=== PATIENT | female | born 2000 | race Caucasian/White ===

== ENCOUNTER 2019-01-19 16:04 | Emergency (ER) | payer MEDICARE, OTHER ==
[~2019-01-19] VITALS: Ht 175.3 cm; Wt 68.0 kg
--- OUTSIDE RECORDS SUMMARY | ~2019-01-19 | XMS | Encounter Summary ---
Demographics + + + | Address | [address] | | | [place] [address] | + + + | Home Phone | | + + + | Preferred Language | Unknown | + + + | Marital Status | Single | + + + | Baptism Affiliation | CHR | + + + | Race | White | + + + | Ethnic Group | Not or | + + + Author + + + | Organization | Unknown | + + + | Address | Unknown | + + + | Phone | Unavailable | + + + Support + + +---------+ + | Name | Relationship | Address | Phone | + + +---------+ + | Mera Guerrero | ECON | Unknown | | + + +---------+ + Care Team Providers + +------+ + | Care Cylinder Filler Name | Role | Phone | + +------+ + | Cheryl Edge MD | PCP | | + +------+ + Encounter Details +--------+ + + + + | Date | Type | Department | Care Team | Description | +--------+ + + + + | 10/02/ | Office | | Note, Outpatient | Progress Note | | 2006 | Visit-Trans | | Clinic | | | | cribed | | | | +--------+ + + + + Social History + +-------+ +--------+------+ | Tobacco Use | Types | Packs/Day | Years | Date | | | | | Used | | + +-------+ +--------+------+ | Never Assessed | | | | | + +-------+ +--------+------+ + + + | Sex Assigned at | Date Recorded | | | | + + + | Not on file | | + + + + + + + | Job Start Date | Occupation | Industry | + + + + | Not on file | Not on file | Not on file | + + + + + + + + | Travel History | Travel Start | Travel End | + + + + + + | No recent travel history available. | + + documented as of this encounter Progress Notes Interface, Editor Book In - 10/07/2005 2:06 AM PDT [id number] DENIS Walker [id number] Clinic Date: 10/02/2005 Clinic: [facility] History: Linda recently had ablation for supraventricular tachycardia in [place]. She, subsequent to the ablation, has had no further episodes of palpitations. She has been exercising and doing very well. At the present time, she is on no medications. Physical Examination: General: She is in no distress, without cyanosis, and alert. Vital Signs: She weighs 30 kg, she is 130.5 cm tall, blood pressure is 113/73, heart rate is 94 per minute and regular, and arterial saturation by pulse oximeter on room air is 99%. Chest: Palpation of the precordium reveals no overactivity nor thrills. Cardiovascular: She has no heart murmurs on listening to the heart. Heart sounds are normal. She has a normally splitting second sound. Summary: During the course of the examination, I noted that she had a somewhat prominent thyroid which was soft to palpation. I asked Dr. Whelan to review this, and she suggested that she be seen by Dr. Edge subsequently. With regard to her supraventricular tachycardia, I am anticipating that this has been cured though I did relate to the mother that occasionally there are occult pathways that do not show up but that this would be a rare occurrence. At this time, I see no reason for our followup excepting on referral from Dr. Edge. Terrance Victoria M.D. Professor of Pediatrics Division of Pediatric Cardiology [facility] / [id number] / [id number] / [id number] / [id number] cc: Cheryl Edge M.D. [address] [place] [address] Electronically signed by Terrance Victoria 10-06-2005 07:49:33 AM documented i n this encounter Plan of Treatment Not on filedocumented as of this encounter Visit Diagnoses Not on filedocumented in this encounter"
--- OUTSIDE RECORDS SUMMARY | ~2019-01-19 | XMS | Encounter Summary ---
Demographics + + + | Address | [address] | | | [place] [address] | + + + | Home Phone | | + + + | Preferred Language | Unknown | + + + | Marital Status | Single | + + + | Denominational Affiliation | CHR | + + + [...] Team Providers + +------+ + | Care Stainless Steel Finisher Name | Role | Phone | + +------+ + PCP | Unavailable | + +------+ + Encounter Details +--------+ + + + + | Date | Type | Department | Care Team | Description | +--------+ + + + + | 06/14/ | Office | | Note, Outpatient | Progress Note | | 2005 | Visit-Trans | | Clinic | | [...] as of this encounter Progress Notes Interface, Real Estate Administrative Assistant In - 09/15/2004 12:00 PM PDT [id number] DENIS Walker Clinic Date: 06/14/2004 Clinic: [facility] Jessa relates that she had had an episode of tachycardia about a month ago. This was the first episode since November 2003. Previously had episodes and all studies did not show anything other than sinus tachycardia. Mother relates that this episode lasted about 40 minutes. Unfortunately when it occurred, their car would not start, and they did not get to the Emergency Room until about 40 minutes or so later and the episode had spontaneously aborted. During this time, the child became little pale but still not in any acute distress. Physical Examination: Examination today is normal. Vital Signs: She weighed 57-1/2 pounds. She is 15-1/4 inches tall. Respiratory was 22 per minute, regular. Blood pressure was 96/60. Heart rate 96 per minute and regular. Arterial saturation by pulse oximeter 98%. Cardiac: Normal without murmur, normal heart sounds. Again, I am reluctant to make a diagnosis or treat this young child without a firm diagnosis. I did instruct the mother again to take her to the Emergency Room if this should occur. I will be talking with Dr. Gonzalez to see whether or not with an episode that lasted 40 minutes, whether it might be prudent to do an electrophysiologic study to see if this could be induced and then treat her subsequently. Otherwise, I will plan to see her again in 6 months. Hopefully, we will come to some way of making a diagnosis. Terrance Victoria M.D. Professor of Pediatrics Division of Pediatric Cardiology [facility] / [id number] / [id number] / [id number] / cc: Cheryl Edge M.D. [address] [place] [address] Electronically signed by Terrance Victoria 06-26-2004 02:01:29 PM documented i n this encounter Plan of Treatment Not on filedocumented as of this encounter Visit Diagnoses Not on filedocumented in this encounter"
--- OUTSIDE RECORDS SUMMARY | ~2019-01-19 | XMS | Encounter Summary ---
Demographics + + + | Address | [address] | | | [place] [address] | + + + | Home Phone | | + + + | Preferred Language | Unknown | + + + | Marital Status | Single | + + + | Voodoo Affiliation | CHR | + + + [...] Team Providers + +------+ + | Care Hide And Skin Colerer Name | Role | Phone | + +------+ + | Cheryl Edge MD | PCP | | + +------+ + Encounter Details +--------+ + + + + | Date | Type | Department | Care Team | Description | +--------+ + + + + | 07/09/ | Letter-Roy | | Letter, Clinic | Letters | | 2006 | scribed | | | | +--------+ + + [...] as of this encounter Progress Notes Interface, Quality Assurance Project Manager In - 07/11/2005 2:08 AM PDT [id number] 07/09/2005 07/09/2005 [id number] DENIS Walker [id number] [facility] [address] [place] [address] or Department of Pediatrics, Division of Pediatric Cardiology Phone #: , Fax #: July 09, 2005 Terrance Victoria M.D. Department of Pediatrics, Division of Cardiology, [facility] RE: MAGDIEL GUERRERO MR #: [id number] Dear Terrance: This is a short note to let you know that your patient, Magdiel, underwent electrophysiologic studies and catheter ablation today. 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 The slow pathway of the AV node was targeted for ablation and successfully ablated without any problems. Provided she has a normal recovery this afternoon, she will be able to go home later today. She has been asked to take aspirin 81 mg once a day for the next 2 weeks and come back see you in [place] in about 2 months' time. I am delighted with the successful procedure. If you have any questions or concerns, please do get back with me. Thank you. Yours Sincerely, Fahad Gonzalez M.D. Director, Pediatric Electrophysiology Parimutuel Clerk of Pediatrics Division of Pediatric Cardiology [facility] SB / [id number] / [id number] / [id number] / cc: Cheryl Edge M.D. [address] [place] [address] documented i n this encounter Plan of Treatment Not on filedocumented as of this encounter Visit Diagnoses Not on filedocumented in this encounter"
--- OUTSIDE RECORDS SUMMARY | ~2019-01-19 | XMS | Encounter Summary ---
Demographics + + + | Address | [address] | | | [place] [address] | + + + | Home Phone | | + + + | Preferred Language | Unknown | + + + | Marital Status | Single | + + + | Yazdanism Affiliation | 1013 | + + + | Race | Unknown | + + + | Ethnic Group | Unknown | + + + Author + + + | Author | [facility] | | | and [place] | + + + | Organization | [facility] | | | and [place] | + + + | Address | Unknown | + + + | Phone | Unavailable | + + + Support + + +---------+ + | Name | Relationship | Address | Phone | + + +---------+ + | Navjot Guerrero | ECON | Unknown | | + + +---------+ + Care Team Providers + +------+ + | Care Warhead Maintenance Specialist Name | Role | Phone | + +------+ + | No, Physician | PCP | Unavailable | + +------+ + Reason for Visit + + + | Reason | Comments | + + + | Pharyngitis | Exam 3/ Sore throat x3 days | + + + Encounter Details +--------+---------+ + + + | Date | Type | Department | Care Team | Description | +--------+---------+ + + + | 12/19/ | Office | [facility] | Jm Valerio | Pharyngitis, | | 2017 | Visit | [facility] [address] | Gerry West MD | unspecified etiology | | | | [place] | [address] | (Primary Dx) | | | | [phone] | [facility] [place] | | | | | [phone] | [address] | | | | | | | | +--------+---------+ + + + Social History + +-------+ +--------+------+ | Tobacco Use | Types | Packs/Day | Years | Date | | | | | Used | | + +-------+ +--------+------+ | Never Smoker | | | | | + +-------+ +--------+------+ + +---+---+---+ | Smokeless Tobacco: | | | | | Never Used | | | | + +---+---+---+ + + + | Sex Assigned at [...] + + documented as of this encounter Last Filed Vital Signs + + + + + | Vital Sign | Reading | Time Taken | Comments | + + + + + | Blood Pressure | 108/69 | 12/19/2016 4:13 PM | | | | | PDT | | + + + + + | Pulse | 87 | 12/19/2016 4:13 PM | | | | | PDT | | + + + + + | Temperature | 37.6 C (99.7 F) | 12/19/2016 4:13 PM | | | | | PDT | | + + + + + | Respiratory Rate | 18 | 12/19/2016 4:13 PM | | | | | PDT | | + + + + + | Oxygen Saturation | 99% | 12/19/2016 4:13 PM | | | | | PDT | | + + + + + | Inhaled Oxygen | - | - | | | Concentration | | | | + + + + + | Weight | 73.8 kg (162 lb 11.2 | 12/19/2016 4:13 PM | | | | oz) | PDT | | + + + + + | Height | 177.8 cm (5' 10") | 12/19/2016 4:13 PM | | | | | PDT | | + + + + + | Body Mass Index | 23.34 | 12/19/2016 4:13 PM | | | | | PDT | | + + + + + documented in this encounter Patient Instructions Patient Instructions Jm Valerio Jr., MD - 12/19/2016 3:45 PM PDTCall for cult ure result in 3 days Follow-up with your doctor or the clinic if not improving in 5 days. Take medication as directed Increase fluid intake Recheck sooner, in the clinic, with your doctor or in the ER, if your symptoms worsen or ne w problems develop 5: 03 PM PDT documented in this encounter Progress Notes Jm Valerio Jr., MD - 12/19/2016 3:45 PM PDTLinda Denise Guerrero Chief Complaint: Sore throat and fever for 3 days HPI: Patient presents with a three-day history of sore throat and low-grade fever. She's had no runny nose or cough. She's had no GI symptoms. No known exposure to strep throat. She has not had mono. She is . Past medical history, past surgical history, medication reviewed. Physical Exam: No acute distress, alert and oriented, non-toxic in appearance BP 108/69 | Pulse 87 | Temp 37.6 C (99.7 F) (Temporal) | Resp 18 | Ht 1.778 m (5' 1 0") | Wt 73.8 kg (162 lb 11.2 oz) | SpO2 99% | ? No | BMI 23.34 kg/m Nose: clear Ears: TM's not inflamed Throat: erythema, no exudate Neck: Supple, no stridor, no adenopathy Chest: No rales, no rhonchi, no wheezes, good breath sounds bilaterally, no respiratory di stress Heart: Regular rhythm, no murmur, no gallop, no rub Strep screen: negative Diagnosis: pharyngitis Plan: Zithromax, culture-call in 3 days for the results Follow-up with your doctor or the clinic if not improving in 5 days. Take medication as directed Increase fluid intake Recheck sooner, in the clinic, with your doctor or in the ER, if your symptoms worsen or ne w problems develop This note dictated with Margaret and was not proofread. antwon duckworth in this encounter Plan of Treatment Not on filedocumented as of this encounter Procedures + +--------+ + + + | Procedure Name | Priori | Date/Time | Associated Diagnosis | Comments | | | ty | | | | + +--------+ + + + | CULTURE, | Routin | 12/19/2016 | Pharyngitis, | Results for this | | RESPIRATORY, UPPER | e | 5:07 PM | unspecified etiology | procedure are in the | | | | PDT | | results section. | + +--------+ + + + | POCT STREPTOCOCCUS A | Routin | 12/19/2016 | Pharyngitis, | Results for this | | NAAT | e | 4:45 PM | unspecified etiology | procedure are in the | | | | PDT | | results section. | + +--------+ + + + documented in this encounter Results Culture, Respiratory, Upper (12/19/2016 5:07 PM PDT) + + + + + + | Component | Value | Ref Range | Performed | Pathologist | | | | | At | Signature | + + + + + + | Culture | No Group A Streptococcus | | [facility] | | | | isolated | | [facility] | | | | | | [facility] | | | | | | [facility] - | | | | | | LABORATORY | | + + + + + + | Culture | 4+ Usual Respiratory | | [facility] | | | | [facility] | | [facility] | | | | | | MEDICAL | | | | | | CENTER - | | | | | | LABORATORY | | + + + + + + | Culture | 4+ Neisseria | | [facility] | | | | meningitidisComment: | | [facility] | | | | Beta-lactamase | | MEDICAL | | | | negativeConsistent with | | CENTER - | | | | usual respiratory hannah. | | LABORATORY | | + + + + + + + + | Specimen | + + | Respiratory - | | Specimen from throat | | (specimen) | + + + + + + + | Performing | Address | City/State/Zipcode | Phone Number | | Organization | | | | + + + + + | [facility] | [address] | [place] | [phone] | | [facility] | | [address] | | | - LABORATORY | | | | + + + + + POCT Streptococcus A NAAT (12/19/2016 4:45 PM PDT) + + + + + + | Component | Value | Ref Range | Performed | Pathologist | | | | | At | Signature | + + + + + + | Group A | Negative | Negative | | | | Strep, DNA | | | | | | POC | | | | | + + + + + + | Internal QC | Acceptable | Acceptable | | | + + + + + + | CULTURE | | | | | | SENT TO LAB | | | | | + + + + + + + + | Specimen | + + | | + + documented in this encounter Visit Diagnoses + + | Diagnosis | + + | Pharyngitis, unspecified etiology - Primary | + + documented in this encounter
--- OUTSIDE RECORDS SUMMARY | ~2019-01-19 | XMS | Encounter Summary ---
Demographics + + + | Address | [address] | | | [place] [address] | + + + | Home Phone | | + + + | Preferred Language | Unknown | + + + | Marital Status | Single | + + + | Scientology Affiliation | CHR | + + + [...] Team Providers + +------+ + | Care Research Home Economist Name | Role | Phone | + +------+ + PCP | Unavailable | + +------+ + Encounter Details +--------+ + + + + | Date | Type | Department | Care Team | Description | +--------+ + + + + | 08/23/ | Office | | Note, Outpatient | [...] as of this encounter Progress Notes Interface, Commercial Loan Manager In - 09/15/2004 10:27 AM PDT [id number] DENIS Walker Clinic Date: 08/23/2004 Clinic: Linda sent in a monitored ECG which did show supraventricular tachycardia. With this, we plan to start treating her with beta elle, atenolol 25 mg daily. We will see her in [place] in September 2004 and then discuss further possibilities of ablation if they wish to go ahead with that or to continue medication at this time. Terrance Victoria M.D. Professor of Pediatrics Division of Pediatric Cardiology [facility] / [id number] / [id number] / [id number] / [id number] cc: Janneth Edge M.D. [address] [place] [address] Electronically signed by Terrance Victoria 08-26-2004 12:25:44 PM documented i n this encounter Plan of Treatment Not on filedocumented as of this encounter Visit Diagnoses Not on filedocumented in this encounter"
--- OUTSIDE RECORDS SUMMARY | ~2019-01-19 | XMS | Encounter Summary ---
Demographics + + + | Address | [address] | | | [place] [address] | + + + | Home Phone | | + + + | Preferred Language | Unknown | + + + | Marital Status | Single | + + + | Gnosticism Affiliation | CHR | + + + | Race | White | + + + | Ethnic Group | Not or | + + + Author + + + | Author | [facility] | + + + | Organization | [facility] | + + + | Address | Unknown | + + + | Phone | Unavailable | + + + Support + + +---------+ + | Name | Relationship | Address | Phone | + + +---------+ + | Mera Guerrero | ECON | Unknown | | + + +---------+ + Care Team Providers + +------+ + | Care Brick Stacker Name | Role | Phone | + +------+ + PCP | Unavailable | + +------+ + Encounter Details +--------+ + + + + | Date | Type | Department | Care Team | Description | +--------+ + + + + | 06/09/ | Results | Nick | Fahad Gonzalez, | | | 2005 | Only | Cardiology Rashawn | [address] [facility] | | | | | [facility] [address] | [address] | | | | | [place]) [facility] | [place], [place] | | | | | [place] | [address] | | | | | [address] | [phone] | | | | | [phone] | | | +--------+ + + + [...] + + documented as of this encounter Plan of Treatment + +------+--------+ + + | Name | Type | Priori | Associated Diagnoses | Date/Time | | | | ty | | | + +------+--------+ + + | TTE (TRANSTHORACIC | ECG | Routin | | 06/09/2005 9:29 AM | | ECHO)-PEDS | | e | | PDT | + +------+--------+ + + | TTE (TRANSTHORACIC | ECG | Routin | | 07/07/2005 6:06 PM | | ECHO)-ARMANDO | | e | | PDT | + +------+--------+ + + documented as of this encounter Visit Diagnoses Not on filedocumented in this encounter"
--- OUTSIDE RECORDS SUMMARY | ~2019-01-19 | XMS | Encounter Summary ---
Demographics + + + | Address | [address] | | | [place] [address] | + + + | Home Phone | | + + + | Preferred Language | Unknown | + + + | Marital Status | Single | + + + | Evangelical Affiliation | CHR | + + + | Race | White | + + + | Ethnic Group | Not or | + + + Author + + + | Author | [facility] | + + + | Organization | [facility] | + + + | Address | Unknown | + + + | Phone | Unavailable | + + + Support + + +---------+ + | Name | Relationship | Address | Phone | + + +---------+ + | Mera Guerrero | ECON | Unknown | | + + +---------+ + Care Team Providers + +------+ + | Care Director Software Name | Role | Phone | + +------+ + PCP | Unavailable | + +------+ + Encounter Details +--------+ + + + + | Date | Type | Department | Care Team | Description | +--------+ + + + + | 09/27/ | Abstract | Pediatric | Terrance Victoria, | | | 2004 | | Cardiology at | | | | | | [place] [address] | | | | | | [address] | | | | | | Pediatric | | | | | | [facility] | | | | | | [place], [place] | | | | | | [address] | | | | | | [phone] | | | +--------+ + + + [...] as of this encounter Plan of Treatment Not on filedocumented as of this encounter Visit Diagnoses Not on filedocumented in this encounter"
--- OUTSIDE RECORDS SUMMARY | ~2019-01-19 | XMS | Encounter Summary ---
Demographics + + + | Address | [address] | | | [place] [address] | + + + | Home Phone | | + + + | Preferred Language | Unknown | + + + | Marital Status | Single | + + + | Jehovah'S Witness Affiliation | 1013 | + + + | Race | Unknown | + + + | Ethnic Group | Unknown | + + + Author + + + | Author | [facility] | | | and [place] | + + + | Organization | [facility] | | | and [...] Team Providers + +------+ + | Care Broadcast Maintenance Technician Name | Role | Phone | + +------+ + | No, Physician | PCP | Unavailable | + +------+ + Reason for Visit + + + | Reason | Comments | + + + | Medication Follow-up | | + + + Encounter Details +--------+ + + + + | Date | Type | Department | Care Team | Description | +--------+ + + + + | 12/23/ | Telephone | [facility] | Gallito Pichardo | Medication Follow-up | | 2017 | | [facility] [address] | MD H[place] [address] | | | | | [address] [address] | [address] [place] | | | | | [address] | [address] | | | | | [phone] | | | +--------+ + + + [...]
--- OUTSIDE RECORDS SUMMARY | ~2019-01-19 | XMS | Encounter Summary ---
Demographics + + + | Address | [address] | | | [place] [address] | + + + | Home Phone | | + + + | Preferred Language | Unknown | + + + | Marital Status | Single | + + + | Hindu Affiliation | CHR | + + + [...] Team Providers + +------+ + | Care Crossing Tender Name | Role | Phone | + +------+ + PCP | Unavailable | + +------+ + Encounter Details +--------+ + + + + | Date | Type | Department | Care Team | Description | +--------+ + + + + | 09/27/ | Office | | Note, Outpatient | [...] as of this encounter Progress Notes Interface, Supervisor Wrapping Room In - 10/10/2004 5:05 AM PDT [id number] DENIS Walker Clinic Date: 09/27/2004 Clinic: [facility] History of Present Illness: Linda came in today with her parents to discuss options relative to management of her documented supraventricular tachycardia. The family did not start her on a beta-elle as they were concerned about possible effects on her behavior. I spent 15 to 20 minutes discussing the situation with the family giving them the options of observing her with the knowledge of management of any episode of tachycardia that persisted for long enough time for them to treat it, that is with either a wet cloth over her face, breath-holding, i.e., a Valsalva maneuver or standing on her head which effectively is a Valsalva maneuver. Other options would be to start her on a beta-elle or use of radiofrequency ablation. After consideration of this, the family thought that they would soon follow her along since the episodes that she has are infrequent and that they generally are of short duration. To me, this is acceptable. I told them that if they want to go ahead with either the other management regimens then we would be happy to do that; otherwise, I would see her in a year and re-discuss the options at that time. Terrance Victoria M.D. Professor of Pediatrics Division of Pediatric Cardiology [facility] / [id number] / [id number] / [id number] / [id number] cc: Cheryl Edge M.D. [address] [facility] [place] [address] Electronically signed by Terrance Victoria 10-09-2004 07:39:09 AM documented i n this encounter Plan of Treatment Not on filedocumented as of this encounter Visit Diagnoses Not on filedocumented in this encounter"
--- OUTSIDE RECORDS SUMMARY | ~2019-01-19 | XMS | Encounter Summary ---
Demographics + + + | Address | [address] | | | [place] [address] | + + + | Home Phone | | + + + | Preferred Language | Unknown | + + + | Marital Status | Single | + + + | Christianity Affiliation | 1013 | + + + | Race | Unknown | + + + | Ethnic Group | Unknown | + + + Author + + + | Author | [facility] | | | and [place] | + + + | Organization | [facility] | | | [...] Team Providers + +------+ + | Care Cisco Certified Internetwork Expert Name | Role | Phone | + +------+ + | No, Physician | PCP | Unavailable | + +------+ + Reason for Visit +---------+ + | Reason | Comments | +---------+ + | Results | | +---------+ + Encounter Details +--------+--------+ + + + | Date | Type | Department | Care Team | Description | +--------+--------+ + + + | 12/22/ | Refill | [facility] | Jm Valerio | Results | | 2017 | | CARE [address] | Gerry West MD | | | | | [place] | [address] | | | | | [address] | [place] | | | | | [phone] | [address] | | | | | | | | +--------+--------+ + + + Social History + +-------+ [...]
--- OUTSIDE RECORDS SUMMARY | ~2019-01-19 | XMS | Encounter Summary ---
Demographics + + + | Address | [address] | | | [place] [address] | + + + | Home Phone | | + + + | Preferred Language | Unknown | + + + | Marital Status | Single | + + + | Denominational Affiliation | 1013 | + + + | Race | Unknown | + + + | Ethnic Group | Unknown | + + + Author + + + | Author | [facility] | | | and [place] | + + + | Organization | [facility] | | | and [...] Team Providers + +------+ + | Care Fishing Boat Mate Name | Role | Phone | + [address] | | | | | [address] | [place] | | | | | [phone] | [address] | | | | | | | [...]
--- OUTSIDE RECORDS SUMMARY | ~2019-01-19 | XMS | Encounter Summary ---
Demographics + + + | Address | [address] | | | [place] [address] | + + + | Home Phone | | + + + | Preferred Language | Unknown | + + + | Marital Status | Single | + + + | Quaker Affiliation | CHR | + + + | Race | White | + + + | Ethnic Group | Not or | + + + Author + + + | Author | [facility] | + + + | Organization | [facility] | + + + | Address | Unknown | + + + | Phone | Unavailable | + + + Support + + +---------+ + | Name | Relationship | Address | Phone | + + +---------+ + | Mera Guerrero | ECON | Unknown | | + + +---------+ + Care Team Providers + +------+ + | Care Hired Hand Name | Role | Phone | + +------+ + | Cheryl Edge MD | PCP | | + +------+ + Encounter Details +--------+ + + + + | Date | Type | Department | Care Team | Description | +--------+ + + + + | 07/01/ | Ancillary | Registration [id number] | Fahad Gonzalez, | | | 2005 | Registratio | [address] | [address] | | | | [address] | [address] Mailcode: [address] | [address] | | | | | [place], [place] | [place], [place] | | | | | [address] | [address] | | | | | [phone] | [phone] | | | | | | | | +--------+ + + [...]
--- OUTSIDE RECORDS SUMMARY | ~2019-01-19 | XMS | Encounter Summary ---
Demographics + + + | Address | [address] | | | [place] [address] | + + + | Home Phone | | + + + | Preferred Language | Unknown | + + + | Marital Status | Single | + + + | Mormon Affiliation | CHR | + + + [...] Team Providers + +------+ + | Care Intervention Analyst Name | Role | Phone | + +------+ + | Cheryl Edge MD | PCP | | + +------+ + Encounter Details +--------+ + + + + | Date | Type | Department | Care Team | Description | +--------+ + + + + | 07/09/ | Procedure - | | Report, Cardiac | Cardiac Cath | | 2006 | | | Cath | | | | Transcribed | | | | +--------+ + + [...] as of this encounter Progress Notes Interface, Family Services Assistant In - 07/30/2005 2:08 AM PDT [id number] 07/09/2005 [id number] DENIS Walker [id number] Patient Name: Linda GUERRERO Patient Data: Height 137 cm Weight 30.7 kg BSA 1.09 m2 Date of Procedure: July 09, 2005 : 2000 Physician: Fahad Gonzalez M.D. Shake Out Worker, Pediatrics Division of Cardiology Tomasz Maher M.D. Fellow, Clinical Cardiac Electrophysiology Referring Physician: Fahad Gonzalez M.D. PROCEDURE(S) PERFORMED: 1. Electrophysiology study with induction. 2. Coronary sinus pacing and recording. 3. Pacing study with drug infusion. 4. Catheter mapping and ablation of the slow pathway of the atrioventricular node. INDICATIONS: A 5-year-old female with recurrent supraventricular tachycardia. FLUOROSCOPY TIME: 12.42 minutes FLUOROSCOPY DAP: 4.02 cGy cm2 PROCEDURE NARRATIVE: Following oral and written informed consent with the patient's parents, the patient was brought to the Cardiac Catheterization Laboratory in the postabsorptive, nonsedated state. She was prepped and draped in the usual sterile fashion. An automated blood pressure cuff and pulse oximeter were placed for continuous monitoring. Lidocaine 1% was used for local anesthesia. A combination of midazolam, fentanyl, Phenergan and pentobarbital was used to achieve moderate sedation. Following this, a 7 Fr 10-cm Sedalia sheath was placed in the right femoral vein. Two 10-cm Sedalia sheaths, a 6 Fr and a 5 Fr, were placed in the left femoral vein. Following this, a 6 Fr Bea curve catheter was placed in the right ventricle. A 4 Fr deflectable decapolar catheter was placed in the coronary sinus. A 6 Fr hexapolar catheter was placed in the His position. TABLE OF VALUES: PRE-ABLATION Rhythm: SINUS Cycle Length: 680 AH Interval: 90 HV Interval: 44 Preexcitation present: NO CODES: AP Accessory pathway FP Fast pathway SP Slow pathway M Muscle AVN AV node SITE BLOCK CL PACE CL ERP RV < 300 CS 390 500 360 FP, 260 AVN Induced Rhythm: AVNRT Cycle Length: 330 POST ABLATION Rhythm: SINUS Cycle Length: 600 AH Interval: 63 HV Interval: 41 Preexcitation present: NO SITE BLOCK CL PACE CL ERP CS 500 320 AVN RV 500 270 AVN CS ISO 301 500 270 AVN No. of RF Applications: 15 (ALL < 15 SEC DURATION) ELECTROPHYSIOLOGY STUDY: The patient presented in a baseline rhythm that was sinus with a cycle length of 680 msec with normal AH and HV intervals with no evidence of preexcitation. Pacing in the right ventricle, conduction was midline and decremental with a block cycle length of less than 300 msec. Interestingly, there was a significant jump in the ventriculoatrial interval during decremental ventricular pacing. Pacing in the coronary sinus, there was evidence of atrioventricular Wenckebach with a block cycle length of 390 msec. With single atrial extrastimuli, there was an AH interval jump greater than 50 msec with the fast pathway effective refractory period defined as 360 msec and a slow pathway effective refractory period of 260 msec. Because of the dramatic shift in ventriculoatrial interval timing during right ventricular pacing, parahisian pacing was undertaken with confirmed Hisian capture and no evidence of an extranodal accessory pathway. With straight right atrial pacing and single extrastimuli, tachycardia could not be induced such that the patient was started on 1 mcg/min of isuprel to achieve an isuprel effect. With straight right atrial pacing, a short RP supraventricular tachycardia was induced at a cycle length of 330 msec with a ventriculoatrial interval of approximately 0 msec. Given evidence of a significant AH interval jump, dual atrioventricular shashi physiology and a short RP tachycardia with a short ventriculoatrial interval, it was felt the tachycardia was most likely atrioventricular shashi reentrant in mechanism such that the decision was then to proceed to slow pathway ablation. RADIOFREQUENCY ABLATION: The patient was given 1,500 units of heparin. A 7 Fr, B-curve, 4-mm tip thermistor catheter was then advanced in the inferoposterior aspect of the tricuspid annulus and the slow pathway mapped. Initial brief lesions were made in the more inferior aspect of the mitral annulus. They were less than 15 seconds in duration but did not produce consistent junctional beats during delivery. Mapping further toward the mid region along the anterior lip of the coronary sinus, at least two deliveries were made that produced consistent junctional beats that were approximately 15 seconds in duration. POST ABLATION: Retesting after these deliveries showed a change in atrioventricular shashi conduction pattern such that, pacing from the coronary sinus, there was continued atrioventricular Wenckebach; however, there was no longer any evidence of an AH interval jump with the fast pathway effective refractory period being 320 msec. Pacing in the right ventricle, conduction again was midline and decremental with no evidence of a ventriculoatrial interval jump seen prior to the study, with the effective refractory period of the atrioventricular node being 270 msec. An isuprel challenge was undertaken at 1 mcg/min. Pacing the coronary sinus, there was atrioventricular Wenckebach with a block cycle length of 300 msec. With single atrial extrastimuli, there was again absence of an AH interval jump with the block cycle length of the fast pathway at 270 msec. No supraventricular tachycardia could be reinduced. Thus, after observation of approximately 20 minutes, post testing showed atrioventricular shashi properties consistent with slow pathway ablation and absence of inducibility of supraventricular tachycardia such that the decision was to end the case at this time. DISPOSITION: All catheters were removed from the patient, as well as sheaths, and manual pressure was held to maintain hemostasis. The patient was then escorted back to the interventional recovery unit for further observation. COMPLICATIONS: None. FINAL RESULTS: 1. Atrioventricular shashi reentrant tachycardia. 2. Slow pathway ablation. ATTENDING SURGEON'S ATTESTATION: Pursuant to Federal Medicare Requirements, I certify that Fahad Gonzalez M.D. was present for the whipple elements of the procedure and participated directly in the generation of this report. Tomasz Maher M.D. Fellow, Clinical Cardiac Electrophysiology Fahad Gonzalez M.D. Shake Out Worker, Pediatrics Division of Cardiology Zahra Job No. [id number] Electronically signed by Fahad Gonzalez 07-29-2005 09:23:00 AM documented i n this encounter Plan of Treatment Not on filedocumented as of this encounter Visit Diagnoses Not on filedocumented in this encounter"
--- OUTSIDE RECORDS SUMMARY | ~2019-01-19 | XMS | Encounter Summary ---
Demographics + + + | Address | [address] | | | [place] [address] | + + + | Home Phone | | + + + | Preferred Language | Unknown | + + + | Marital Status | Single | + + + | Rastafari Affiliation | CHR | + + + [...] Team Providers + +------+ + | Care Treasurer Name | Role | Phone | + [...] as of this encounter Progress Notes Interface, Foreign Broadcast Specialist In - 09/15/2004 10:27 AM PDT [id number] DENIS Walker Clinic Date: 08/23/2004 Clinic: Linda [...] Professor of Pediatrics Division of Pediatric Cardiology [facility] / [id number] / [id number] / [id number] / [id number] cc: Janneth Edge M.D. [address] [facility] [place] [address] Electronically signed by Terrance Victoria 08-26-2004 12:25:44 PM documented i n this encounter Plan of Treatment Not on filedocumented as of this encounter Visit Diagnoses Not on filedocumented in this encounter"
--- OUTSIDE RECORDS SUMMARY | ~2019-01-19 | XMS | Clinical Summary ---
Demographics + + + | Address | [address] | | | [place] [address] | + + + | Home Phone | | + + + | Preferred Language | Unknown | + + + | Marital Status | Single | + + + | Congregation Affiliation | 1013 | + + + | Race | Unknown | + + + | Ethnic Group | Unknown | + + + Author + + + | Author | [facility] | | | and [place] | + + + | Organization | [facility] | | | [...] Team Providers + +------+ + | Care Cake Knocker Name | Role | Phone | + +------+ + | No, Physician | PCP | Unavailable | + +------+ + Allergies No Known Allergies Medications + + + +---------+------+------+-------+ | Medication | Sig | Dispensed | Refills | Star | End | Statu | | | | | | t | Date | s | | | | | | Date | | | + + + +---------+------+------+-------+ | ALPRAZolam (XANAX) | Take 0.5 mg by mouth | | 0 | | | Activ | | 0.5 mg tablet | 3 times daily as | | | | | e | | | needed for Anxiety. | | | | | | + + + +---------+------+------+-------+ | azithromycin | 2 tablets orally on | 6 | 0 | 11/0 | | Activ | | (ZITHROMAX) 250 mg | the first day, then | tablet | | 3/20 | | e | | tabletIndications: | one tablet orally | | | 17 | | | | Pharyngitis, | daily for 4 more | | | | | | | unspecified etiology | days | | | | | | + + + +---------+------+------+-------+ | ciprofloxacin | Take 500 mg for one | 1 | 0 | 11/0 | | Activ | | (CIPRO) 500 mg | dose | tablet | | 7/20 | | e | | tablet | | | | 17 | | | + + + +---------+------+------+-------+ Active Problems No known active problems Social History + +-------+ +--------+------+ | Tobacco [...] recent travel history available. | + + Last Filed Vital Signs + + + [...] | | + + + + + Plan of Treatment + + + + + | Health Maintenance | Due Date | Last Done | Comments | + + + + + | Well Child Check | | | | | | 2 | | | + + + + + | Vaccine: HPV (1 - | | | | | Female 3-dose | 4 | | | | series) | | | | + + + + + | Vaccine: | | | | | Dtap/Tdap/Td (1 - | 8 | | | | Tdap) | | | | + + + + + | Vaccine: Influenza | | | | | (#1) | 9 | | | + + + + + Results Not on filefrom Last 3 Months Insurance + +--------+ +--------+ +---------+--------+ | Payer | Benefi | Subscriber | Effect | Phone | Address | Type | | | t Plan | ID | sean | | | | | | / | | Dates | | | | | | Group | | | | | | + +--------+ +--------+ +---------+--------+ | [employer] | [employer] | [id number] | | [phone] | | Medica | | MEDICAID HMO | HEALTH | | [phone]-[id number] | 1 | | id | | | MDCD | | esent | | | | | | HMO [place] | | | | | | + +--------+ +--------+ +---------+--------+ + +--------+ +--------+ + + | Guarantor Name | Accoun | Relation to | Date | Phone | Billing Address | | | t Type | Patient | of | | | | | | | | | | + +--------+ +--------+ + + | Linda Guerrero | Person | Self [birth year] | [address] | | | al/Robert | | 2000 | [phone] | [place] [address] | | | kylah | | | 1 (Home) | | + +--------+ +--------+ + + Advance Directives + + + + + | Type | Date Recorded | Patient | Explanation | | | | Vest Front Presser | | + + + + + | Power of | | | | | Project Management Instructor | | | | + + + + + | Advance | | | | | Directive | | | | + + + + +
--- OUTSIDE RECORDS SUMMARY | ~2019-01-19 | XMS | Encounter Summary ---
Demographics + + + | Address | [address] | | | [place] [address] | + + + | Home Phone | | + + + | Preferred Language | Unknown | + + + | Marital Status | Single | + + + | Yazidi Affiliation | CHR | + + + [...] Team Providers + +------+ + | Care Precinct Police Captain Name | Role | Phone | + [...] as of this encounter Progress Notes Interface, Energy Projects Lead In - 10/10/2004 5:05 AM PDT [id number] DENIS Walker Clinic Date: 09/27/2004 Clinic: [facility] History of Present Illness: [...] Professor of Pediatrics Division of Pediatric Cardiology [facility] / [id number] / [id number] / [id number] / [id number] cc: Cheryl Edge M.D. [address] [facility] [place] [address] Electronically signed by Terrance Victoria 10-09-2004 07:39:09 AM documented i n this encounter Plan of Treatment Not on filedocumented as of this encounter Visit Diagnoses Not on filedocumented in this encounter"
--- OUTSIDE RECORDS SUMMARY | ~2019-01-19 | XMS | Encounter Summary ---
Demographics + + + | Address | [address] | | | [place] [address] | + + + | Home Phone | | + + + | Preferred Language | Unknown | + + + | Marital Status | Single | + + + | Temple Affiliation | CHR | + + + | Race | White | + + + | Ethnic Group | Not or | + + + Author + + + | Author | [facility] | + + + | Organization | [facility] | + + + | Address | Unknown | + + + | Phone | Unavailable | + + + Support + + +---------+ + | Name | Relationship | Address | Phone | + + +---------+ + | Mera Guerrero | ECON | Unknown | | + + +---------+ + Care Team Providers + +------+ + | Care Rocket Test Fire Worker Name | Role | Phone | + +------+ + | Cheryl Edge MD | PCP | | + +------+ + Encounter Details +--------+ + + + + | Date | Type | Department | Care Team | Description | +--------+ + + + + | 07/01/ | Office | [facility] | Nish, Namita Cardio | Progress Note | | 2006 | Visit-Trans | CARDIOLOGY | Clinic | | | | cribed [...] as of this encounter Progress Notes Interface, Launch Leader In - 07/10/2005 2:06 AM PDT [id number] DENIS Walker [id number] Clinic Date: 07/01/2005 Pediatric Cardiology Clinic Site: [facility] History: Linda came to see me today for a electrophysiologic consultation regarding her supraventricular tachycardia. She has been seeing Dr. Victoria in [place] in the past. She has had documented supraventricular tachycardia. She has totally had about 15 episodes in her life and they started happening about 1 or 2 years ago. She has never had syncope. The longest episode was 45 minutes in duration. She has been to the emergency room 5 to 6 times, but has never received intravenous adenosine to stop these episodes. They either spontaneously convert or convert with Valsalva maneuver. She complains of chest pain during this episode and numbness in the upper part of the chest. She is otherwise a very active young girl who is a first grader, who is one of six children and lives at home with her parents and 3 other siblings. There is no family history of arrhythmias. Linda does have a half-sister with mitral valve prolapse syndrome. Review of Systems: Otherwise negative. Family History: Father works as a makeup artist and the mother is a homemaker. Allergies: None. Medications: None. Physical Examination: General/Vital Signs: This is tall, well-looking young lady with a weight of 30.2 kg, height of 134.3 cm, blood pressure 103/51, heart rate 88, and saturations 99%. Vital Signs: Blood pressure 103/51, heart rate 88 and saturations 99%. She was comfortable at rest with no signs of anemia, jaundice, clubbing, cyanosis, or peripheral edema. Peripheral pulses were normally palpable including good femoral pulses and no brachiofemoral delay. Abdomen: Soft with no hepatosplenomegaly. Chest: Clear to auscultation. Cardiac auscultation reveals normal first and second heart sounds with no murmurs or clicks. Central Nervous System: Grossly normal with normal gait, normal speech, and normal facial movements. Skin: Normal with no rashes. Extremities: Warm and well perfused and tone was normal in all 4 limbs. Laboratory Data: Her echocardiogram performed today shows normal intracardiac anatomy with normal structure and function. I was able to review her past electrocardiograms which have not shown Xigzd-Tbdeyqfcy-Mmsgd syndrome and tracings that clearly show documented supraventricular tachycardia. I talked to Linda and her parents and explained the possible mechanism of Linda's supraventricular tachycardia which I think is likely to be due to an accessory pathway. The parents would like to proceed with an electrophysiologic study and catheter ablation, and therefore, I went over that procedure in detail including its pros and cons such as recurrence, AV node damage, etc. They opted to have this done next week, and a further report will follow. I did tell them that if we found on the electrophysiologic study that there was too much risk from doing the ablation part of the procedure, we would desist from doing that and would probably put her on medications. I have given the parents my card and asked them to contact me if they have any other questions. I look forward to seeing them next week. Fahad Gonzalez M.D. Director, Pediatric Electrophysiology Personal Lines Account Manager of Pediatrics Division of Pediatric Cardiology [facility] / HS [id number] / [id number] / [id number] / [id number] cc: Terrance Victoria M.D. [facility] Prof. Pediatrics, Division of Pediatric Cardiology, [facility] Cheryl Myersman [address] [facility] [address] [place] [address] Electronically signed by Fahad Gonzalez 07-09-2005 08:16:34 AM documented i n this encounter Plan of Treatment Not on filedocumented as of this encounter Visit Diagnoses Not on filedocumented in this encounter"
--- OUTSIDE RECORDS SUMMARY | ~2019-01-19 | XMS | Encounter Summary ---
Demographics + + + | Address | [address] | | | [place] [address] | + + + | Home Phone | | + + + | Preferred Language | Unknown | + + + | Marital Status | Single | + + + | Christian Affiliation | CHR | + + + [...] Team Providers + +------+ + | Care Associate Professor Of Forestry Name | Role | Phone | + +------+ + PCP | Unavailable | + +------+ + Encounter Details +--------+ + + + + | Date | Type | Department | Care Team | Description | +--------+ + + + + | 06/14/ | Office | | Clinic, Congenital | Progress Note | | 2005 | Visit-Trans | | Heart | | | | cribed | | [...] as of this encounter Progress Notes Interface, Cartographic Technician In - 09/15/2004 12:00 PM PDT [id number] 06/14/2004 06/14/2004 [id number] DENIS Zuñiga Date: 06/14/2004 Clinic: [facility] Linda Guerrero had been seen in the [facility] on June 14, 2004. I discussed this patient with Dr. Gonzalez, and he feels that at this time electrophysiologic study is not indicated under the circumstances. Then, we will continue to follow her in 6 months, and hopefully, she will not have any further episodes. If they should occur, she was instructed to get to the Emergency Room for documentation of her rhythm at that time. Terrance Victoria M.D. Professor of Pediatrics Division of Pediatric Cardiology [facility] / [id number] / [id number] / [id number] / [id number] cc: Cheryl Edge M.D. [address] [facility] [place] [address] Electronically signed by Terrance Victoria 07-01-2004 12:55:26 PM documented i n this encounter Plan of Treatment Not on filedocumented as of this encounter Visit Diagnoses Not on filedocumented in this encounter"
--- OUTSIDE RECORDS SUMMARY | ~2019-01-19 | XMS | Clinical Summary ---
Demographics + + + | Address | [address] | | | [place] [address] | + + + | Home Phone [...] Author + + + | Author | [facility] | + + + | Organization | [facility] | + + + | Address | Unknown | + + + | Phone | Unavailable | + + + Support + + +---------+ + | Name | Relationship | Address | Phone | + + +---------+ + | Mear Guerrero | ECON | Unknown | | + + +---------+ + Care Team Providers + +------+ + | Care Curator Of Collections Name | Role | Phone | + +------+ + PCP | Unavailable | + +------+ + Source Comments [facility] is fully live on both [facility] Ambulatory and [facility] InPatient.[facility] Allergies No Known Allergies Medications + + + +---------+------+------+-------+ | Medication | Sig | Dispensed | Refills | Star | End | Statu | | | | | | t | Date | s | | | | | | Date | | | + + + +---------+------+------+-------+ | DAILY VITAMINS OR | None Entered | | 0 | | | Activ | | | | | | | | e | + + + +---------+------+------+-------+ Active Problems + + + | Problem | Noted Date | + + + | Paroxysmal supraventricular tachycardia | 09/27/2004 | + + + + + | Overview: RTC 1 YR | + + Social History + +-------+ +--------+------+ [...] | + + Last Filed Vital Signs Not on file Plan of Treatment + + + + + | Health Maintenance | Due Date | Last Done | Comments | + + + + + | Influenza (Flu) | | | | | vaccination (#1) | 9 | | | + + + + + | Pneumococcal | Aged Out | | No longer eligible | | vaccination | | | based on patient's | | | | | age to complete this | | | | | topic | + + + + + Results Not on filefrom Last 3 Months"
--- OUTSIDE RECORDS SUMMARY | ~2019-01-19 | XMS | Clinical Summary ---
Demographics + + + | Address | [address] | | | [place] [address] | + + + | Home Phone | | + + + | Preferred Language | Unknown | + + + | Marital Status | Single | + + + | Catholic Affiliation | CHR | + + + [...] Team Providers + +------+ + | Care Marketing Outreach Coordinator Name | Role | Phone | + +------+ + PCP | Unavailable | + +------+ + Source Comments [facility] is fully live on both [facility] Ambulatory and [facility] InPatient.[facility] Allergies No Known Allergies Medications + + [...]
--- OUTSIDE RECORDS SUMMARY | ~2019-01-19 | XMS | Encounter Summary ---
Demographics + + + | Address | [address] | | | [place] [address] | + + + | Home Phone | | + + + | Preferred Language | Unknown | + + + | Marital Status | Single | + + + | Gnosticist Affiliation | 1013 | + + + | Race | Unknown | + + + | Ethnic Group | Unknown | + + + Author + + + | Author | [facility] | | | and [place] | + + + | Organization | [facility] | | | [...] Team Providers + +------+ + | Care Sole Inker Name | Role | Phone | + [...] + + | 12/19/ | Office | [facility] | Jm Valerio | Pharyngitis, | | 2017 | Visit | [facility] [address] | Gerry West MD | unspecified etiology | | | | [place] | [address] | (Primary Dx) | | | | [address] | [facility], [place] | | | | | [phone] | [address] | | | | | | | [...] [address] | [place] | [phone] | | [facility] | | [address] | | | - LABORATORY | | [...]
--- OUTSIDE RECORDS SUMMARY | ~2019-01-19 | XMS ---
Demographics + + + | Address | [address] | | | [place] [address] | + + + | Home Phone | | + + + | Preferred Language | Unknown | + + + | Marital Status | Never | + + + | Holiness Affiliation | Unknown | + + + | Race | White | + + + | Ethnic Group | Not or | + + + Author + + + | Author | [facility] | + + + | Organization | [facility] | + + + | Address | [address] | | | [place] [address] | + + + | Phone | | + + + Care Team Providers + + + + | Care Auto Painter Name | Role | Phone | + + + + | Cheryl Edge PCP | | + + + + | Kely Cheryl Moreland | PreferredProvider | | + + + + Allergies and Adverse Reactions + + + + | Name | Reaction | Notes | + + + + | NO KNOWN DRUG ALLERGIES | | | + + + + | Other Food or Environmental | | MAPLE TREE POLLEN - | | Allergies | | [employer] 06/14/2015 | + + + + Plan of Treatment Not available. Medications +---------+ | | +---------+ + + + + + + | Name | Start Date | Expiration Date | SIG | Comments | + + + + + + | cephalexin 500 | 05/29/2011 | 06/08/2011 | take 1 tablet | | | mg oral tablet | | | by oral route 3 | | | | | | times a day | | | | | | for 10 days | | + + + + + + Problem List + +--------+ + | Description | Status | Onset | + +--------+ + | Breast lump | Active | 10/25/2013 | + +--------+ + | Anxiety Disorder, | Active | 12/07/2013 | | Generalized | | | + +--------+ + Vital Signs +-----+-----+-----+-----+-----+-----+-----+-----+-----+----+-----+-----+-----+-----+ | Hugo | Joseph | BP- | BP- | HR( | RR( | Tem | WT | HT | HC | BMI | BSA | BMI | O2 | | e | e | Sys | Sole | bpm | rpm | p | | | | | | | Sat | | | | (mm | (mm | ) | ) | | | | | | | Per | (%) | | | | [Hg | [Hg | | | | | | | | | stepan | | | | | ] | ]) | | | | | | | | | til | | | | | | | | | | | | | | | e | | +-----+-----+-----+-----+-----+-----+-----+-----+-----+----+-----+-----+-----+-----+ | 4/6 | 11: | 110 | 74 | 87 | 24 | 98. | 157 | 69. | | 22. | 1.8 | 65 | | | /20 | 26: | | mmH | bpm | rpm | 5 F | | 9 | | 59 | 7 | % | | | 17 | 00 | mmH | g | | | | lbs | in | | kg/ | m2 | | | | | AM | g | | | | | | | | m2 | | | | +-----+-----+-----+-----+-----+-----+-----+-----+-----+----+-----+-----+-----+-----+ | 11/ | 2:5 | 122 | 70 | 94 | 20 | 98. | 164 | 70 | | 23. | 1.9 | 74. | 100 | | 30/ | 6:0 | | mmH | bpm | rpm | 2 F | | in | | 531 | 168 | 1 % | % | | 201 | 0 | mmH | g | | | | lbs | | | 3 | | | | | 6 | PM | g | | | | | | | | kg/ | m | | | | | | | | | | | | | | m | | | | +-----+-----+-----+-----+-----+-----+-----+-----+-----+----+-----+-----+-----+-----+ | 4/2 | 11: | 128 | 74 | 94 | 30 | 97. | 161 | 69. | | 23. | 1.9 | 74 | 99 | | 8/2 | 51: | | mmH | bpm | rpm | 7 F | | 75 | | 27 | 0 | % | % | | 016 | 00 | mmH | g | | | | lbs | in | | kg/ | m2 | | | | | AM | g | | | | | | | | m2 | | | | +-----+-----+-----+-----+-----+-----+-----+-----+-----+----+-----+-----+-----+-----+ | 10/ | 2:3 | 155 | 80 | 114 | 20 | 98. | 163 | 69. | | 23. | 1.9 | 81. | 100 | | 22/ | 1:0 | | mmH | | rpm | 7 F | | 75 | | 555 | 075 | 1 % | % | | 201 | 0 | mmH | g | bpm | | | lbs | in | | 8 | | | | | 4 | PM | g | | | | | | | | kg/ | m | | | | | | | | | | | | | | m | | | | +-----+-----+-----+-----+-----+-----+-----+-----+-----+----+-----+-----+-----+-----+ | 9/9 | 4:0 | 110 | 72 | 93 | 18 | 98. | 160 | 69. | | 23. | 1.8 | 78. | 99 | | /20 | 8:0 | | mmH | bpm | rpm | 8 F | | 75 | | 12 | 9 | 9 % | % | | 14 | 0 | mmH | g | | | | lbs | in | | kg/ | m2 | | | | | PM | g | | | | | | | | m2 | | | | +-----+-----+-----+-----+-----+-----+-----+-----+-----+----+-----+-----+-----+-----+ | 8/2 | 4:1 | 132 | 70 | 90 | 30 | 98 | 152 | 68. | | 22. | 1.8 | 79. | | | 1/2 | 8:0 | | mmH | bpm | rpm | F | .5 | 9 | | 585 | 338 | 8 % | | | 013 | 0 | mmH | g | | | | lbs | in | | 5 | | | | | | PM | g | | | | | | | | kg/ | m | | | | | | | | | | | | | | m | | | | +-----+-----+-----+-----+-----+-----+-----+-----+-----+----+-----+-----+-----+-----+ | 5/1 | 3:0 | | | | | | 156 | | | | | | | | 5/2 | 4:0 | | | | | | .5 | | | | | | | | 012 | 0 | | | | | | lbs | | | | | | | | | PM | | | | | | | | | | | | | +-----+-----+-----+-----+-----+-----+-----+-----+-----+----+-----+-----+-----+-----+ | 4/1 | 4:0 | 128 | 72 | 80 | 20 | 99. | 160 | 68. | | 23. | 1.8 | 89. | | | 2/2 | 7:0 | | mmH | bpm | rpm | 2 F | .25 | 8 | | 80 | 8 | 9 % | | | 012 | 0 | mmH | g | | | | | in | | kg/ | m2 | | | | | PM | g | | | | | lbs | | | m2 | | | | +-----+-----+-----+-----+-----+-----+-----+-----+-----+----+-----+-----+-----+-----+ | 4/1 | 9:5 | 110 | 66 | 80 | 14 | 97. | 144 | 68. | | 21. | 1.7 | 84. | | | 4/2 | 1:0 | | mmH | bpm | rpm | 5 F | | 5 | | 576 | 767 | 3 % | | | 011 | 0 | mmH | g | | | | lbs | in | | 4 | | | | | | AM | g | | | | | | | | kg/ | m | | | | | | | | | | | | | | m | | | | +-----+-----+-----+-----+-----+-----+-----+-----+-----+----+-----+-----+-----+-----+ Social History + + + + | Name | Description | Comments | + + + + | Tobacco | Never smoker | | + + + + | In tenth grade | | | + + + + | Exercises 1-3 times a week | | - [facility] 06/14/2015 | + + + + | Alcohol | Never | - [employer] 06/14/2015 | + + + + | Lives With | | parents Stephany and Navjot are | | | | as of Fall 2012. , | | | | cristino Garcia and Ginger | + + + + | Home School | | | + + + + History of Procedures + + + + | Date Ordered | Description | Order Status | + + + + | 07/01/2011 12:00 AM | CULTURE SCREEN ONLY | Returned | + + + + | 06/14/2015 12:00 AM | MENINGOCOCCAL CONJ VACCINE | Reviewed | | | QUADRAVALENT IM | | + + + + | 06/14/2015 12:00 AM | ECG MONIT/REPRT UP TO 48 | Reviewed | | | HRS | | + + + + | 01/21/2016 12:00 AM | MEASURE BLOOD OXYGEN LEVEL | Reviewed | + + + + | 05/22/2016 12:00 AM | CRAFFT Screening | Reviewed | + + + + | 05/22/2016 12:00 AM | BRIEF EMOTIONAL/BEHAV ASSMT | Reviewed | + + + + | 07/01/2011 12:00 AM | IAADIADOO STREPTOCOCCUS | Reviewed | | | GROUP A | | + + + + | 10/25/2013 12:00 AM | Breast Ultrasound | Reviewed | + + + + Results Summary Not available. History Of Immunizations +-------+-------+-------+------+-------+-------+-------+-------+-------+-------+-----+ | Name | Date | Mfg | Mfg | Trade | Lot# | Route | Inj | Vis | Vis | CVX | | | Admin | Name | Code | Name | | | | Given | Pub | | +-------+-------+-------+------+-------+-------+-------+-------+-------+-------+-----+ | DTaP | 03/18/ | Not | NE | Not | | Not | Not | | | | | | 2000 | Enter | | Enter | | Enter | Enter | 001 | 001 | | | | | ed | | ed | | ed | ed | | | | +-------+-------+-------+------+-------+-------+-------+-------+-------+-------+-----+ | DTaP | 11/04/ | Not | NE | Not | | Not | Not | | | 999 | | | 2001 | Enter | | Enter | | Enter | Enter | 001 | 001 | | | | | ed | | ed | | ed | ed | | | | +-------+-------+-------+------+-------+-------+-------+-------+-------+-------+-----+ | DTaP | 10/14/ | Not | NE | Not | | Not | Not | | | 999 | | | 2001 | Enter | | Enter | | Enter | Enter | 001 | 001 | | | | | ed | | ed | | ed | ed | | | | +-------+-------+-------+------+-------+-------+-------+-------+-------+-------+-----+ | DTaP | 09/27/ | Not | NE | Not | | Not | Not | | | 999 | | | 2004 | Enter | | Enter | | Enter | Enter | 001 | 001 | | | | | ed | | ed | | ed | ed | | | | +-------+-------+-------+------+-------+-------+-------+-------+-------+-------+-----+ | DTaP | 05/29/ | Not | NE | Not | | Not | Not | | | 999 | | | 2010 | Enter | | Enter | | Enter | Enter | 001 | 001 | | | | | ed | | ed | | ed | ed | | | | +-------+-------+-------+------+-------+-------+-------+-------+-------+-------+-----+ | Tdap | 08/07/ | Not | NE | Not | | Not | Not | | | 999 | | | 2009 | Enter | | Enter | | Enter | Enter | 001 | 001 | | | | | ed | | ed | | ed | ed | | | | +-------+-------+-------+------+-------+-------+-------+-------+-------+-------+-----+ | Hib | 03/18/ | Not | NE | Not | | Not | Not | | | 999 | | | 2000 | Enter | | Enter | | Enter | Enter | 001 | 001 | | | | | ed | | ed | | ed | ed | | | | +-------+-------+-------+------+-------+-------+-------+-------+-------+-------+-----+ | Hib | 10/13/ | Not | NE | Not | | Not | Not | | 1/1/0 | 999 | | | 2001 | Enter | | Enter | | Enter | Enter | 001 | 001 | | | | | ed | | ed | | ed | ed | | | | +-------+-------+-------+------+-------+-------+-------+-------+-------+-------+-----+ | Hib | 12/03 | Not | NE | Not | | Not | Not | | | 999 | | | /1998 | Enter | | Enter | | Enter | Enter | 001 | 001 | | | | | ed | | ed | | ed | ed | | | | +-------+-------+-------+------+-------+-------+-------+-------+-------+-------+-----+ | Hib | 05/29/ | Not | NE | Not | | Not | Not | | | 999 | | | 2010 | Enter | | Enter | | Enter | Enter | 001 | 001 | | | | | ed | | ed | | ed | ed | | | | +-------+-------+-------+------+-------+-------+-------+-------+-------+-------+-----+ | HepB | 03/18/ | Not | NE | Not | | Not | Not | | | 999 | | | 2000 | Enter | | Enter | | Enter | Enter | 001 | 001 | | | | | ed | | ed | | ed | ed | | | | +-------+-------+-------+------+-------+-------+-------+-------+-------+-------+-----+ | HepB | 11/04/ | Not | NE | Not | | Not | Not | | | 999 | | | 2000 | Enter | | Enter | | Enter | Enter | 001 | 001 | | | | | ed | | ed | | ed | ed | | | | +-------+-------+-------+------+-------+-------+-------+-------+-------+-------+-----+ | HepB | 10/13/ | Not | NE | Not | | Not | Not | | | 999 | | | 2001 | Enter | | Enter | | Enter | Enter | 001 | 001 | | | | | ed | | ed | | ed | ed | | | | +-------+-------+-------+------+-------+-------+-------+-------+-------+-------+-----+ | IPV | 03/18/ | Not | NE | Not | | Not | Not | | | 999 | | | 2000 | Enter | | Enter | | Enter | Enter | 001 | 001 | | | | | ed | | ed | | ed | ed | | | | +-------+-------+-------+------+-------+-------+-------+-------+-------+-------+-----+ | IPV | 11/04/ | Not | NE | Not | | Not | Not | | | 999 | | | 2001 | Enter | | Enter | | Enter | Enter | 001 | 001 | | | | | ed | | ed | | ed | ed | | | | +-------+-------+-------+------+-------+-------+-------+-------+-------+-------+-----+ | IPV | 10/13/ | Not | NE | Not | | Not | Not | | | 999 | | | 2002 | Enter | | Enter | | Enter | Enter | 001 | 001 | | | | | ed | | ed | | ed | ed | | | | +-------+-------+-------+------+-------+-------+-------+-------+-------+-------+-----+ | IPV | 09/27/ | Not | NE | Not | | Not | Not | | | 999 | | | 2004 | Enter | | Enter | | Enter | Enter | 001 | 001 | | | | | ed | | ed | | ed | ed | | | | +-------+-------+-------+------+-------+-------+-------+-------+-------+-------+-----+ | MMR | 03/18/ | Not | NE | Not | | Not | Not | | | 999 | | | 2001 | Enter | | Enter | | Enter | Enter | 001 | 001 | | | | | ed | | ed | | ed | ed | | | | +-------+-------+-------+------+-------+-------+-------+-------+-------+-------+-----+ | MMR | 09/27/ | Not | NE | Not | | Not | Not | | | 999 | | | 2003 | Enter | | Enter | | Enter | Enter | 001 | 001 | | | | | ed | | ed | | ed | ed | | | | +-------+-------+-------+------+-------+-------+-------+-------+-------+-------+-----+ | Hep A | 09/27/ | Not | NE | Not | | Not | Not | | | 999 | | | 2004 | Enter | | Enter | | Enter | Enter | 001 | 001 | | | | | ed | | ed | | ed | ed | | | | +-------+-------+-------+------+-------+-------+-------+-------+-------+-------+-----+ | Hep A | 10/14/ | Not | NE | Not | | Not | Not | | | 999 | | | 2006 | Enter | | Enter | | Enter | Enter | 001 | 001 | | | | | ed | | ed | | ed | ed | | | | +-------+-------+-------+------+-------+-------+-------+-------+-------+-------+-----+ | Menac | 08/07/ | Not | NE | Not | | Not | Not | | | 999 | | tra | 2009 | Enter | | Enter | | Enter | Enter | 001 | 001 | | | | | ed | | ed | | ed | ed | | | | +-------+-------+-------+------+-------+-------+-------+-------+-------+-------+-----+ | HepB | 05/28/ | Not | NE | Not | | Not | Not | | | 110 | | | 2011 | Enter | | Enter | | Enter | Enter | 001 | 001 | | | | | ed | | ed | | ed | ed | | | | +-------+-------+-------+------+-------+-------+-------+-------+-------+-------+-----+ | Tdap | 04/03/ | Not | NE | Not | | Not | Not | | | 115 | | | 2016 | Enter | | Enter | | Enter | Enter | 001 | 001 | | | | | ed | | ed | | ed | ed | | | | +-------+-------+-------+------+-------+-------+-------+-------+-------+-------+-----+ | Menac | 06/13/ | sanof | PMC | Menac | [id number] | Intra | Left | 06/13/ | 11/29 | 136 | | tra | 2016 | i | | tra | BA | muscu | Delto | 2015 | | | | | paste | | | | lar | id | | | | | | | ur | | | | | | | | | +-------+-------+-------+------+-------+-------+-------+-------+-------+-------+-----+ History of Past Illness + + + + | Name | Date of Onset | Comments | + + + + | Left Sprain/Strain Of Knee | May 30 2010 9:41AM | | + + + + | PSVT | | | + + + + | Dry Skin | 10/06/2012 | | + + + + | Cellulitis | May 29 2011 4:07PM | | + + + + | Pharyngitis, Acute | Jul 01 2011 3:03PM | | + + + + | Breast lump | 10/25/2013 | | + + + + | Anxiety Disorder, | 12/07/2013 | | | Generalized | | | + + + + | Other | | SVT - [employer] 06/14/2015 | + + + + | Dermatitis, Contact | Oct 06 2012 4:13PM | | + + + + | Dry Skin | Oct 06 2012 4:13PM | | + + + + | Left Breast Lump | Oct 25 2013 4:03PM | | + + + + | Well Child Check | Dec 07 2013 2:24PM | | + + + + | Anxiety Disorder, | Dec 07 2013 2:24PM | | | Generalized Stable | | | + + + + | Tonsillitis, Chronic | Dec 07 2013 2:24PM | | + + + + | Well Child Check | Jun 14 2015 11:40AM | | + + + + | Menactra 11 & UP | Jun 14 2015 11:40AM | | + + + + | Anxiety Disorder, | Jun 14 2015 11:40AM | | | Generalized | | | + + + + | Tachycardia | Jun 14 2015 11:40AM | | + + + + | History of SVT | Jan 16 2016 2:19PM | | | (supraventricular | | | | tachycardia) | | | + + + + | Heart palpitations | Jan 16 2016 2:19PM | | + + + + | Well Child Check | May 22 2016 11:18AM | | + + + + | Tinea pedis of right foot | May 22 2016 11:18AM | | + + + + | Substance Use Screen | May 22 2016 11:18AM | | | (CRAFFT) | | | + + + + | Depression Screen (PHQ-A) | May 22 2016 11:18AM | | + + + + Payers + + + + + +---------+ + | Insurance | Company | Plan Name | Plan | Policy | Policy | Start Date | | Name | Name | | Number | Number | Group | | | | | | | | Number | | + + + + + +---------+ + | | [employer] | [employer] | [id number] | [id number] | | , | | | | | | | | December | | | Health/ohp | | | | | 2011 | + + + + + +---------+ + | | Family | Family | | [id number] | | N/A | | | Care | Care | | | | | + + + + + +---------+ + History of Encounters + + + + | Visit Date | Visit Type | Provider | + + + + | 05/22/2016 | Well Child Check | Cheryl Edge MD | + + + + | 01/16/2016 | Consult | Selin BRICE | + + + + | 06/14/2015 | Well Child Check | | + + + + | 06/14/2015 | Well Child Check | | + + + + | 06/14/2015 | Well Child Check | Cheryl Edge MD | + + + + | 12/07/2013 | Well Child Check | Selin BRICE | + + + + | 10/25/2013 | Office Visit | Cheryl Edge MD | + + + + | 10/06/2012 | Acute Illness | Selin BRICE | + + + + | 07/01/2011 | Walk In | Nurse Nurse | + + + + | 05/29/2011 | Acute Illness | Malini Valenzuela MD | + + + + | 05/30/2010 | Office Visit | Cheryl Edge MD | + + + +"
--- OUTSIDE RECORDS SUMMARY | ~2019-01-19 | XMS | Encounter Summary ---
Demographics + + + | Address | [address] | | | [place] [address] | + + + | Home Phone | | + + + | Preferred Language | Unknown | + + + | Marital Status | Single | + + + | Anglican Affiliation | 1013 | + + + | Race | Unknown | + + + | Ethnic Group | Unknown | + + + Author + + + | Author | [facility] | | | and [place] [...] Team Providers + +------+ + | Care Product Development Scientist Name | Role | Phone | + +------+ + PCP | Unavailable | + +------+ + Encounter Details +--------+ + + + + | Date | Type | Department | Care Team | Description | +--------+ + + + + | 12/31/ | Hospital | [facility] | | | | 2003 - | Encounter | MED CTR GENERIC OP | | | | | | CONV DEPT [address] | | | | 02/01/ | | [place], | | | | 2003 | | [place] [address] | | | | | | [phone] | | | +--------+ + + + [...]
--- OUTSIDE RECORDS SUMMARY | ~2019-01-19 | XMS | Encounter Summary ---
Demographics + + + | Address | [address] | | | [place] [address] | + + + | Home Phone | | + + + | Preferred Language | Unknown | + + + | Marital Status | Single | + + + | Mormon Affiliation | 1013 | + + + | Race | Unknown | + + + | Ethnic Group | Unknown | + + + Author + + + | Author | [facility] | | | and [place] | + + + | Organization | [facility] | | [...] Team Providers + +------+ + | Care Fireworks Inspector Name | Role | Phone | + +------+ + PCP | Unavailable | + +------+ + Encounter Details +--------+ + + + + | Date | Type | Department | Care Team | Description | +--------+ + + + + | 12/31/ | Hospital | [facility] | | | | 2003 - | Encounter | MED CTR GENERIC OP | | | | | | CONV DEPT [address] | | | | 02/01/ | | [place], | | | | 2003 | | [place] [address] | | | | | | [phone] | | | +--------+ + + + [...]
--- OUTSIDE RECORDS SUMMARY | ~2019-01-19 | XMS | Encounter Summary ---
Demographics + + + | Address | [address] | | | [place] [address] | + + + | Home Phone | | + + + | Preferred Language | Unknown | + + + | Marital Status | Single | + + + | Pentecostalism Affiliation | CHR | + + + | Race | White | + + + | Ethnic Group | Not or | + + + Author + + + | Author | [facility] | + + + | Organization | [facility] | + + + | Address | Unknown | + + + | Phone | Unavailable | + + + Support + + +---------+ + | Name | Relationship | Address | Phone | + + +---------+ + | Mera Guerrero | ECON | Unknown | | + + +---------+ + Care Team Providers + +------+ + | Care Client Technologies Analyst Name | Role | Phone | + +------+ + PCP | Unavailable | + +------+ + Encounter Details +--------+ + + + + | Date | Type | Department | Care Team | Description | +--------+ + + + + | 02/20/ | Telephone | Pediatric | Jesus Woodard MD | | | 2017 | | Cardiology at | [address] | | | | | Nick | [facility] | | | | | [facility] | [place] [address] | | | | | [address] | [phone] | | | | | [facility] Mailcode: | | | | | | [place] | | | | | | | | | | | | [address] | | | | | | [phone] | | | +--------+ + + + [...]
--- OUTSIDE RECORDS SUMMARY | ~2019-01-19 | XMS | Encounter Summary ---
Demographics + + + | Address | [address] | | | [place] [address] | + + + | Home Phone | | + + + | Preferred Language | Unknown | + + + | Marital Status | Single | + + + | Samaritan Affiliation | CHR | + + + | Race | White | + + + | Ethnic Group | Not or | + + + Author + + + | Author | [facility] | + + + | Organization | [facility] | + + + | Address | Unknown | + + + | Phone | Unavailable | + + + Support + + +---------+ + | Name | Relationship | Address | Phone | + + +---------+ + | Mera Guerrero | ECON | Unknown | | + + +---------+ + Care Team Providers + +------+ + | Care Picker And Packer Name | Role | Phone | + +------+ + | Cheryl Edge MD | PCP | | + +------+ + Encounter Details +--------+ + + + + | Date | Type | Department | Care Team | Description | +--------+ + + + + | 07/09/ | Ancillary | Registration [address] | [address], | | | 2005 | Reg[address]ratio | [address] | [address] | | | | [address] | [address] Mailcode: [id number] | [address] | | | | | [place], [place] | [place], [place] | | | | | [address] | [address] | | | | | [phone] | [phone] | | | | | | | [...]
--- OUTSIDE RECORDS SUMMARY | ~2019-01-19 | XMS | Encounter Summary ---
Demographics + + + | Address | [address] | | | [place] [address] | + + + | Home Phone | | + + + | Preferred Language | Unknown | + + + | Marital Status | Single | + + + | Jehovah'S Witness Affiliation | CHR | + + + | Race | White | + + + | Ethnic Group | Not or | + + + Author + + + | Author | [facility] | + + + | Organization | [facility] | + + + | Address | Unknown | + + + | Phone | Unavailable | + + + Support + + +---------+ + | Name | Relationship | Address | Phone | + + +---------+ + | Mera Guerrero | ECON | Unknown | | + + +---------+ + Care Team Providers + +------+ + | Care Green Building Engineer Name | Role | Phone | + +------+ + PCP | Unavailable | + +------+ + Encounter Details +--------+ + + + + | Date | Type | Department | Care Team | Description | +--------+ + + + + | 02/18/ | Abstract | Pediatric | Roxane Maynard, | | | 2017 | | Cardiology at | MD [address] | | | | | Nick | [address] | | | | | [facility] | [place], [place] | | | | | [address] | [address] | | | | | Mirtha Felix Mailcode: | [phone] | | | | | [address] | | | | | | [place], [place] | | | | | | [address] | | | | | | [phone] | | | +--------+ + + + [...]
--- OUTSIDE RECORDS SUMMARY | ~2019-01-19 | XMS | Encounter Summary ---
Demographics + + + | Address | [address] | | | [place] [address] | + + + | Home Phone | | + + + | Preferred Language | Unknown | + + + | Marital Status | Single | + + + | Pentecostal Affiliation | CHR | + + + [...] Team Providers + +------+ + | Care Calender Inspector Name | Role | Phone | [...] as of this encounter Progress Notes Interface, Education Finance Processor In - 09/15/2004 12:00 PM PDT [id number] 06/14/2004 06/14/2004 [id number] DENIS Zuñiga Date: 06/14/2004 Clinic: [facility] Linda Guerrero had been seen in the [facility] on June 14, 2004. [...] Professor of Pediatrics Division of Pediatric Cardiology [facility] / [id number] / [id number] / [id number] / [id number] cc: Cheryl Edge M.D. [address] [facility] [place] [address] Electronically signed by Terrance Victoria 07-01-2004 12:55:26 PM documented i n this encounter Plan of Treatment Not on filedocumented as of this encounter Visit Diagnoses Not on filedocumented in this encounter"
--- OUTSIDE RECORDS SUMMARY | ~2019-01-19 | XMS | Encounter Summary ---
Demographics + + + | Address | [address] | | | [place] [address] | + + + | Home Phone | | + + + | Preferred Language | Unknown | + + + | Marital Status | Single | + + + | Synagogue Affiliation | CHR | + + + [...] Team Providers + +------+ + | Care Fabric Cutter Name | Role | Phone | + [...] as of this encounter Progress Notes Interface, Neck Band Setter In - 09/15/2004 12:00 PM PDT [id number] DENIS Walker Clinic Date: 06/14/2004 Clinic: [facility] Jessa relates that she [...] Professor of Pediatrics Division of Pediatric Cardiology [facility] / [id number] / [id number] / [id number] / cc: Cheryl Edge M.D. [address] [facility] [address] [place] [address] Electronically signed by Terrance Victoria 06-26-2004 02:01:29 PM documented i n this encounter Plan of Treatment Not on filedocumented as of this encounter Visit Diagnoses Not on filedocumented in this encounter"
--- OUTSIDE RECORDS SUMMARY | ~2019-01-19 | XMS | Encounter Summary ---
Demographics + + + | Address | [address] | | | [place] [address] | + + + | Home Phone [...] Author + + + | Author | [facility] | + + + | Organization | [facility] | + + + | Address | Unknown | + + + | Phone | Unavailable | + + + Support + + +---------+ + | Name | Relationship | Address | Phone | + + +---------+ + | Mera Guerrero | ECON | Unknown | | + + +---------+ + Care Team Providers + +------+ + | Care Cps Team Lead Name | Role | Phone | + [...] of this encounter Progress Notes Interface, Commercial Real Estate Assistant In - 07/10/2005 2:06 AM PDT [id number] DENIS Walker [id number] Clinic Date: 07/01/2005 Pediatric Cardiology Clinic Site: [facility] History: Linda came to see me today for a electrophysiologic consultation regarding her supraventricular tachycardia. She has been seeing Dr. Victoria in [place] in the past. She has had documented [...] negative. Family History: Father works as a textile artist and the mother is a homemaker. [...] her past electrocardiograms which have not shown Lprne-Cbpjyanjp-Jxuzy syndrome and tracings that clearly show documented [...] week. Fahad Gonzalez M.D. Director, Pediatric Electrophysiology Metal Sander of Pediatrics Division of Pediatric Cardiology [facility] / HS [id number] / [id number] / [id number] / [id number] cc: Terrance Victoria M.D. [facility] Prof. Pediatrics, Division of Pediatric Cardiology, [facility] Cheryl Myersman [address] [facility] [address] [place] [address] Electronically signed by Fahad Gonzalez 07-09-2005 08:16:34 AM documented i n this encounter Plan of Treatment Not on filedocumented as of this encounter Visit Diagnoses Not on filedocumented in this encounter"
--- OUTSIDE RECORDS SUMMARY | ~2019-01-19 | XMS | Encounter Summary ---
Demographics + + + | Address | [address] | | | [place] [address] | + + + | Home Phone | | + + + | Preferred Language | Unknown | + + + | Marital Status | Single | + + + | Religion Affiliation | CHR | + + + | Race | White | + + + | Ethnic Group | Not or | + + + Author + + + | Author | [facility] | + + + | Organization | [facility] | + + + | Address | Unknown | + + + | Phone | Unavailable | + + + Support + + +---------+ + | Name | Relationship | Address | Phone | + + +---------+ + | Mera Guerrero | ECON | Unknown | | + + +---------+ + Care Team Providers + +------+ + | Care Gold And Silver Assayer Name | Role | Phone | + [...] | | | | [facility] | [place], [place] | | | | | [address] | [address] | | | | | Mirtha Felix Mailcode: | [phone] | | | | | [address] | | | | | | [place], [place] | | | | | | [address] | | | | | | [phone] | | | +--------+ + + + [...]
--- OUTSIDE RECORDS SUMMARY | ~2019-01-19 | XMS | Encounter Summary ---
Demographics + + + | Address | [address] | | | [place] [address] | + + + | Home Phone | | + + + | Preferred Language | Unknown | + + + | Marital Status | Single | + + + | Orthodox Affiliation | CHR | + + + | Race | White | + + + | Ethnic Group | Not or | + + + Author + + + | Author | [facility] | + + + | Organization | [facility] | + + + | Address | Unknown | + + + | Phone | Unavailable | + + + Support + + +---------+ + | Name | Relationship | Address | Phone | + + +---------+ + | Mera Guerrero | ECON | Unknown | | + + +---------+ + Care Team Providers + +------+ + | Care Audit Manager Name | Role | Phone | + [...] [place] | | | | | | [address] | | | | | | [phone] | | | +--------+ + + + [...]
--- OUTSIDE RECORDS SUMMARY | ~2019-01-19 | XMS | Encounter Summary ---
Demographics + + + | Address | [address] | | | [place] [address] | + + + | Home Phone | | + + + | Preferred Language | Unknown | + + + | Marital Status | Single | + + + | Protestant Affiliation | CHR | + + + [...] Team Providers + +------+ + | Care Luncheonette Operator Name | Role | Phone | + +------+ + PCP | Unavailable | + +------+ + Encounter Details +--------+ + + + + | Date | Type | Department | Care Team | Description | +--------+ + + + + | 12/08/ | Office | | Note, Outpatient | Progress Note | | 2004 | Visit-Trans | | Clinic | | [...] as of this encounter Progress Notes Interface, Program Eligibility Specialist In - 09/15/2004 8:48 AM PDT [id number] DENIS Walker Clinic Date: 12/09/2003 Clinic: [facility] Subjective: Linda is 3-year-old child who is referred for evaluation of rapid heartbeat that comes suddenly and on occasion, this was accompanied by chest pain. She had had a Holter done but mother and father state that during that time she had Holter on that she had no episodes. The only thing unusual about the Holter was that at least by the times noted, she seem to have more sinus tachycardia when she would have been sleeping at 11 p.m. However, I am wondering whether this is an error in the time recording. The parents states that the episodes that she has began about 4 to 6 weeks ago as far they know and the first occurred while she was sitting. She complained about her heart beating fast and when the family taps it out, it is certainly at about 160 to 180 at least. Earlier this was occurring 2 to 3 times a week, has not happened in last couple of weeks. She has been taken to the Emergency Room on 2 occasions and on both times by the time she got there, they were examining her, she did not have tachycardia. Most of these episodes last only a few minutes but when she went to the Emergency Room, the long as it might have been would have been 30 minutes. This young girl has otherwise been well. She plays hard and has not had any problems with chest pain with her playing. She does not have asthma or any breathing problem. She eats well does not have any problems with diarrhea, constipation, nausea, or vomiting. She does not have any joint pain. She has not had any skin problems. She currently is in kindergarten. There is a 12-year-old and 7-year-old in the household with her. There are 3 other sibs who are older, 26, 23, and 20. She has then 5 siblings all of them are well. Mother has had 7 pregnancies delivering 6 children and had one . Physical Examination General: Linda is alert in no distress without cyanosis. Vital Signs: She weighs 54 pounds. She is 48 inches tall, respiratory rate is 20 per minute and regular, blood pressure is 113/66, heart rate is 89 per minute and regular. Arterial saturation by pulse oximeter room air is 99%. Cardiovascular: Palpation of precordium reveals no reactivity nor thrill. Abdomen: Negative without hepatosplenomegaly, masses, or tenderness. Extremities: She has no edema. She has good pulses in all extremities. Venous pressure is estimated to be about 5 to 6 cm of water. Lungs: Clear to auscultation. Cardiac auscultation is normal. I heard no heart murmur. She has normal heart sounds. Impression and Plan: The electrocardiograms that I had seen did not show any evidence of Eynef-Btxiejwor-Slorx syndrome. I feel that these episodes and the description certainly are compatible with reentry supraventricular tachycardia. With the frequency, they seem to be bothersome and might require treatment, however, certainly we would want to define this greater precision. With this in mind, I requested that we get an event monitor for her. I think she is mature enough to handle the button when she might have an episode. We look forward to seeing the results of her event monitor and defining this problem more definitively. Terrance Victoria M.D. Professor of Pediatrics Division of Pediatric Cardiology [facility] / [id number] / [id number] / [id number] / cc: Cheryl Edge M.D. [address] [facility] [address] [place] [address] documented i n this encounter Plan of Treatment Not on filedocumented as of this encounter Visit Diagnoses Not on filedocumented in this encounter"
--- OUTSIDE RECORDS SUMMARY | ~2019-01-19 | XMS | Clinical Summary ---
Demographics + + + | Address | [address] | | | [place] [address] | + + + | Home Phone | | + + + | Preferred Language | Unknown | + + + | Marital Status | Single | + + + | Christian Affiliation | 1013 | + + + | Race | Unknown | + + + | Ethnic Group | Unknown | + + + Author + + + | Author | [facility] | | | and [place] | + + + | Organization | [facility] | | | and [...] Team Providers + +------+ + | Care Public Policy Professor Name | Role | Phone | + [...] | [employer] | [employer] | [id number] | | [phone] | | [employer] | | MEDICAID HMO [...] | 2000 | [phone] | [place] [address] | | | kylah | | | 1 (Home) | | + +--------+ +--------+ + + Advance Directives + + + + + | Type | Date Recorded | Patient | Explanation | | | | Auger Machine Offbearer | | + + + + + | Power of | | | | | Client Experience Consultant | | | | + + + + + | Advance | | | | | Directive | | | | + + + + +
--- OUTSIDE RECORDS SUMMARY | ~2019-01-19 | XMS | Encounter Summary ---
Demographics + + + | Address | [address] | | | [place] [address] | + + + | Home Phone [...] Author + + + | Author | [facility] | + + + | Organization | [facility] | + + + | Address | Unknown | + + + | Phone | Unavailable | + + + Support + + +---------+ + | Name | Relationship | Address | Phone | + + +---------+ + | Mera Guerrero | ECON | Unknown | | + + +---------+ + Care Team Providers + +------+ + | Care Caravan Park And Camping Ground Manager Name | Role | Phone | [...] | | | Nick | Mirtha [address] [facility] | | | | | [facility] | [place] [address] | | | | | [address] | [phone] | | | | | Mirtha Felix Mailcode: | | | | | | [address] | | | | | | [place], [place] | | | | | | [address] | | | | | | [phone] | | | +--------+ + + + [...]
--- OUTSIDE RECORDS SUMMARY | ~2019-01-19 | XMS | Encounter Summary ---
Demographics + + + | Address | [address] | | | [place] [address] | + + + | Home Phone | | + + + | Preferred Language | Unknown | + + + | Marital Status | Single | + + + | Lutheran Affiliation | CHR | + + + [...] Team Providers + +------+ + | Care Lithographer Apprentice Name | Role | Phone | + [...] as of this encounter Progress Notes Interface, Helicopter Dispatcher In - 07/11/2005 2:08 AM PDT [id number] 07/09/2005 07/09/2005 [id number] DENIS Walker [id number] [facility] [address] [facility] [address] [place] [address] or Department of Pediatrics, Division of Pediatric Cardiology Phone #: , Fax #: July 09, 2005 Terrance Victoria M.D. Department of Pediatrics, Division of Cardiology, [facility] CDRCP RE: MAGDIEL GUERRERO MR #: [id number] Dear Terrance: This is a short note [...] weeks and come back see you in [place] in about 2 months' time. I am delighted with the successful procedure. If you have any questions or concerns, please do get back with me. Thank you. Yours Sincerely, Fahad Gonzalez M.D. Director, Pediatric Electrophysiology Seam Stayer of Pediatrics Division of Pediatric Cardiology [facility] / HS [id number] / [id number] / [id number] / cc: Cheryl Edge M.D. [address] [facility] [address] [place] [address] documented i n this encounter Plan of Treatment Not on filedocumented as of this encounter Visit Diagnoses Not on filedocumented in this encounter"
--- OUTSIDE RECORDS SUMMARY | ~2019-01-19 | XMS | Encounter Summary ---
Demographics + + + | Address | [address] | | | [place] [address] | + + + | Home Phone | | + + + | Preferred Language | Unknown | + + + | Marital Status | Single | + + + | Christianity Affiliation | CHR | + + + | Race | White | + + + | Ethnic Group | Not or | + + + Author + + + | Author | [facility] | + + + | Organization | [facility] | + + + | Address | Unknown | + + + | Phone | Unavailable | + + + Support + + +---------+ + | Name | Relationship | Address | Phone | + + +---------+ + | Mera Guerrero | ECON | Unknown | | + + +---------+ + Care Team Providers + +------+ + | Care Secretary Of State Name | Role | Phone | + [...] [address] | | | | | [place], [place] | [place], [place] | | | | | [address] | [address] | | | | | [phone] | [phone] | | | | | | | [...]
--- OUTSIDE RECORDS SUMMARY | ~2019-01-19 | XMS | Encounter Summary ---
Demographics + + + | Address | [address] | | | [place] [address] | + + + | Home Phone [...] Team Providers + +------+ + | Care Psychiatric Np Name | Role | Phone | + +------+ + | Cheryl Edge MD | PCP | | + +------+ + Encounter Details +--------+ + + + + | Date | Type | Department | Care Team | Description | +--------+ + + + + | 07/09/ | Hospital | Registration [address] | Fahad Gonzalez, | | | 2005 | Activity | [address] MD [address] | | | | | [address] Mailcode: [address] | [address] | | | | | [place], [place] | [place] | | | | | [address] | [address] | | | | | [phone] | [phone] | | | | | | | [...] | + +--------+ + + + | TYPE AND SCREEN | Routin | 07/09/2005 | | Results for this | | | e | 7:30 AM | | procedure are in the | | | | PDT | | results section. | + +--------+ + + + documented in this encounter Results TYPE AND SCREEN (07/09/2005 7:30 AM PDT) + +-------+ + + + | Component | Value | Ref Range | Performed | Pathologist | | | | | At | Signature | + +-------+ + + + | ABO GROUP | O | | [facility] | | | | | | DEPARTMENT | | | | | | OF | | | | | | PATHOLOGY | | + +-------+ + + + | RH TYPE | POS | | [facility] | | | | | | DEPARTMENT | | | | | | OF | | | | | | PATHOLOGY | | + +-------+ + + + | ANTIBODY | NEG | | [facility] | | | SCREEN | | | DEPARTMENT | | | | | | OF | | | | | | PATHOLOGY | | + +-------+ + + + + + | Specimen | + + | | + + + + + | Narrative | Performed At | + + + | Instrument Testing Instrument Testing | [facility] | | | DEPARTMENT OF | | | PATHOLOGY | + + + + + + + + | Performing | Address | City/State/Zipcode | Phone Number | | Organization | | | | + + + + + | [facility] DEPARTMENT OF | [address] | [place] [address] | | | PATHOLOGY | [address] | | | + + + + + | [facility] | [address] | [place] [address] | | | PATHOLOGY | [address] | | | + + + + + documented in this encounter Visit Diagnoses Not on filedocumented in this encounter"
--- OUTSIDE RECORDS SUMMARY | ~2019-01-19 | XMS | Encounter Summary ---
Demographics + + + | Address | [address] | | | [place] [address] | + + + | Home Phone | | + + + | Preferred Language | Unknown | + + + | Marital Status | Single | + + + | Mu-Ism Affiliation | CHR | + + + | Race | White | + + + | Ethnic Group | Not or | + + + Author + + + | Author | [facility] | + + + | Organization | [facility] | + + + | Address | Unknown | + + + | Phone | Unavailable | + + + Support + + +---------+ + | Name | Relationship | Address | Phone | + + +---------+ + | Mera Guerrero | ECON | Unknown | | + + +---------+ + Care Team Providers + +------+ + | Care Railroad Firer/Fireman Name | Role | Phone | + [...] | [address] | [address] | | | | [address] | [address] Mailcode: [id number] | [address] | | | | | [place], [place] | [place], [place] | | | | | [address] | [address] | | | | | [phone] | [phone] | | | | | | | [...]
--- OUTSIDE RECORDS SUMMARY | ~2019-01-19 | XMS | Encounter Summary ---
Demographics + + + | Address | [address] | | | [place] [address] | + + + | Home Phone | | + + + | Preferred Language | Unknown | + + + | Marital Status | Single | + + + | Judaism Affiliation | CHR | + + + | Race | White | + + + | Ethnic Group | Not or | + + + Author + + + | Author | [facility] | + + + | Organization | [facility] | + + + | Address | Unknown | + + + | Phone | Unavailable | + + + Support + + +---------+ + | Name | Relationship | Address | Phone | + + +---------+ + | Mera Guerrero | ECON | Unknown | | + + +---------+ + Care Team Providers + +------+ + | Care Automotive Metalsmith Name | Role | Phone | + +------+ + PCP | Unavailable | + +------+ + Encounter Details +--------+ + + + + | Date | Type | Department | Care Team | Description | +--------+ + + + + | 06/09/ | Results | Nick | Fahad Gonzalez, | | | 2005 | Only | Cardiology Rashawn | [address] [facility] | | | | | CDR [address] | [address] | | | | | [place]) [facility] | [place], [place] | | | | | [place] | [address] | | | | | [address] | [phone] | | | | | [phone] | | | +--------+ + + + [...]
--- OUTSIDE RECORDS SUMMARY | ~2019-01-19 | XMS | Encounter Summary ---
Demographics + + + | Address | [address] | | | [place] [address] | + + + | Home Phone | | + + + | Preferred Language | Unknown | + + + | Marital Status | Single | + + + | Sabianism Affiliation | CHR | + + + [...] Team Providers + +------+ + | Care Route Inspector Name | Role | Phone | [...] as of this encounter Progress Notes Interface, Hat Binder In - 07/30/2005 2:08 AM PDT [id number] 07/09/2005 [id number] DENIS Walker [id number] Patient Name: Linda GUERRERO Patient Data: Height 137 cm Weight 30.7 kg BSA 1.09 m2 Date of Procedure: July 09, 2005 : 2000 Physician: Fahad Gonzalez M.D. Clin Nurse Spec, Pediatrics Division of Cardiology Tomasz Maher M.D. [...] sedation. Following this, a 7 Fr 10-cm Friesland sheath was placed in the right femoral vein. Two 10-cm Friesland sheaths, a 6 Fr and a 5 [...] Fellow, Clinical Cardiac Electrophysiology Fahad Gonzalez M.D. Clin Nurse Spec, Pediatrics Division of Cardiology Zahra Job No. [id number] Electronically signed by Fahad Gonzalez 07-29-2005 09:23:00 AM documented i n this encounter Plan of Treatment Not on filedocumented as of this encounter Visit Diagnoses Not on filedocumented in this encounter"
--- OUTSIDE RECORDS SUMMARY | ~2019-01-19 | XMS | Encounter Summary ---
Demographics + + + | Address | [address] | | | [place] [address] | + + + | Home Phone | | + + + | Preferred Language | Unknown | + + + | Marital Status | Single | + + + | Spiritism Affiliation | 1013 | + + + | Race | Unknown | + + + | Ethnic Group | Unknown | + + + Author + + + | Author | [facility] | | | and [place] | + + + | Organization | [facility] | | | [...] Team Providers + +------+ + | Care Acid Crane Operator Name | Role | Phone | [...] [place] | | | | | [address] | [address] | | | | | [phone] | | | +--------+ + + + [...]
--- OUTSIDE RECORDS SUMMARY | ~2019-01-19 | XMS | Encounter Summary ---
Demographics + + + | Address | [address] | | | [place] [address] | + + + | Home Phone | | + + + | Preferred Language | Unknown | + + + | Marital Status | Single | + + + | Advent Affiliation | CHR | + + + [...] Team Providers + +------+ + | Care Income Auditor Name | Role | Phone | + [...] as of this encounter Progress Notes Interface, Basket Weaver In - 10/07/2005 2:06 AM PDT [id number] DENIS Walker [id number] Clinic Date: 10/02/2005 Clinic: [facility] History: Linda recently had ablation for supraventricular tachycardia in [place]. She, subsequent to the ablation, has had [...] Professor of Pediatrics Division of Pediatric Cardiology [facility] / [id number] / [id number] / [id number] / [id number] cc: Cheryl Edge M.D. [address] [facility] [address] [place] [address] Electronically signed by Terrance Victoria 10-06-2005 07:49:33 AM documented i n this encounter Plan of Treatment Not on filedocumented as of this encounter Visit Diagnoses Not on filedocumented in this encounter"
--- OUTSIDE RECORDS SUMMARY | ~2019-01-19 | XMS | Encounter Summary ---
Demographics + + + | Address | [address] | | | [place] [address] | + + + | Home Phone | | + + + | Preferred Language | Unknown | + + + | Marital Status | Single | + + + | Muslim Affiliation | CHR | + + + [...] Team Providers + +------+ + | Care Oracle Etl Developer Name | Role | Phone | + [...] as of this encounter Progress Notes Interface, Childcare Center Director In - 09/15/2004 8:48 AM PDT [id number] [facility] Date: 12/09/2003 Clinic: [facility] Subjective: Linda is 3-year-old [...] seen did not show any evidence of Pkjlf-Qecfbjixz-Ppfoj syndrome. I feel that these episodes and [...] Pediatric Cardiology [facility] / [id number] / [id number] / [id number] / cc: Cheryl Edge M.D. [address] [facility] [address] [place] [address] documented i n this encounter Plan of Treatment Not on filedocumented as of this encounter Visit Diagnoses Not on filedocumented in this encounter"
--- OUTSIDE RECORDS SUMMARY | ~2019-01-19 | XMS | Encounter Summary ---
Demographics + + + | Address | [address] | | | [place] [address] | + + + | Home Phone | | + + + | Preferred Language | Unknown | + + + | Marital Status | Single | + + + | Methodist Affiliation | CHR | + + + | Race | White | + + + | Ethnic Group | Not or | + + + Author + + + | Author | [facility] | + + + | Organization | [facility] | + + + | Address | Unknown | + + + | Phone | Unavailable | + + + Support + + +---------+ + | Name | Relationship | Address | Phone | + + +---------+ + | Mera Guerrero | ECON | Unknown | | + + +---------+ + Care Team Providers + +------+ + | Care Towel Distributor Name | Role | Phone | + [...] [address] | | | | | [place] | | | | | [address] | [address] | | | | | [phone] | [phone] | | | | | | | [...] DEPARTMENT OF | [address] | [place] [address] | | | PATHOLOGY | [address] | | | + + + + + | [facility] | [address] | [place] [address] | | | PATHOLOGY | [address] | | | + + + + + documented in this encounter Visit Diagnoses Not on filedocumented in this encounter"
--- OUTSIDE RECORDS SUMMARY | ~2019-01-19 | XMS ---
Demographics + + + | Address | [address] | | | [place] [address] | + + + | Home Phone | | + + + | Preferred Language | Unknown | + + + | Marital Status | Never | + + + | Confucianist Affiliation | Unknown | + + + | Race | White | + + + | Ethnic Group | Not or | + + + Author + + + | Author | [facility] [place] [facility] | + + + | Organization | [facility] [place] [facility] | + + + | Address | [address] | | | [place] [address] | + + + | Phone | | + + + Care Team Providers + + + + | Care Staffing Consultant Name | Role | Phone | + [...] + | | [employer] | [employer] | [id number] | [id number] | | , | | | | | | | | December | | | Health/ohp | | | | | 2011 | + + + + + +---------+ + | | Family | Family | | [id number] | | N/A | | | Care [...]
== END 2019-01-19 19:25 | disposition home or self-care (01) ==
LOC: ED 16:04
DX: F41.9 Anxiety disorder, unspecified (principal)
CPT/HCPCS: 80053; 80176; 81001; 84443; 84703; 85025; 99283; G0480

== ENCOUNTER 2021-06-15 10:34 | Emergency (ER) | payer MEDICARE, OTHER ==
[~2021-06-15] VITALS: Ht 175.3 cm; Wt 68.0 kg
--- OUTSIDE RECORDS SUMMARY | 2021-06-15 10:38 | XMS ---
PreManage Notification: MAGDIEL BARRIOS Security Hr Clerk Events No recent Security Events currently on file CRITERIA MET - [facility] - 2 Visits in 30 Days CARE PROVIDERS There are no care providers on record at this time. [place] has no Care Guidelines for this patient. [facility] V[facility] (12 MO.) [facility] T[facility] NOTE: Visits indicate total known visits. ED/C VISIT TRACKING (12 MO.) [facility] [place] [facility] COMPLAINT: - RT FOOT TOE, INJURY 06/14/2021 18:53 [facility] [place] TYPE: Emergency COMPLAINT: - TOE INJURY INPATIENT VISIT TRACKING (12 MO.) No inpatient visits to display in this time frame [id number]
== END 2021-06-15 11:52 | disposition home or self-care (01) ==
LOC: ED 10:34
DX: S91.114A Laceration without foreign body of right lesser toe(s) without damage to nail, initial encounter (principal); Z23 Encounter for immunization; W22.8XXA Striking against or struck by other objects, initial encounter
CPT/HCPCS: 90471; 90715; 99282-25